=== PATIENT | male | born 1965 | race Caucasian/White ===

== ENCOUNTER 2016-12-27 08:41 | Day surgery (SDC) | payer OTHER ==
[2016-12-25 15:18] VITALS: BMI 25.8
[~2016-12-27 08:41] MED LIST: LACTATED RINGERS 1,000 ML IV SCH
[2016-12-27 09:13] VITALS: RESP 16; TEMP 97.8
[2016-12-27] MEDS ORDERED: LIDOCAINE 1% 20 ML VIAL (10MG/ML) FOR IV START SQ ONE (09:15)
[2016-12-27] MEDS ORDERED: PROPOFOL 10 MG/ML 20 ML VIAL IV ONE (09:37)
--- NOTE | 2016-12-27 09:41 | P.GSHP ---
History of Present Illness H&P Date: 12/27/16 Chief Complaint: Colon cancer screening Patient here today for screening colonoscopy. He has not had one previously. No family history of colon cancer. No bowel related complaints. Past Medical History Past Medical History: Hypertension History of Any Multi-Drug Resistant Organisms: None Reported Past Surgical History: Orthopedic Surgery Additional Past Surgical History / Comment(s): LT KNEE SCOPE Past Anesthesia/Blood Transfusion Reactions: No Reported Reaction Smoking Status: Current every day smoker - Past Family History Mother Family Medical History: No Reported History Medications and Allergies Home Medications Medication Instructions Recorded Confirmed Type Losartan Potassium [Cozaar] 100 mg PO DAILY 12/25/16 12/27/16 History Allergies Allergy/AdvReac Type Severity Reaction Status Date / Time No Known Allergies Allergy Verified 12/27/16 09:13 Surgical - Exam Vital Signs Temp Pulse Resp BP Pulse Ox 97.8 F 83 16 132/84 98 12/27/16 09:12 12/27/16 09:12 12/27/16 09:12 12/27/16 09:12 12/27/16 09:12 Physical exam: General: Well-developed, well-nourished HEENT: Normocephalic, sclerae nonicteric Abdomen: Nontender, nondistended Extremities: No edema Neuro: Alert and oriented Assessment and Plan (1) Colon cancer screening Narrative/Plan: Proceed with colonoscopy at this time Status: Acute
--- NOTE | 2016-12-27 09:54 | P.PCN ---
Date of Procedure: 12/27/16 Preoperative Diagnosis: Postoperative Diagnosis: Procedure(s) Performed: PREOPERATIVE DIAGNOSIS: Colon cancer screening POSTOPERATIVE DIAGNOSIS: Normal exam PROCEDURE: Colonoscopy ANESTHESIA: MAC SURGEON: Nehemiah Ortega M.D. SPECIMENS: None ENDOSCOPIC PROCEDURE: The patient was placed on the endoscopy table in the left decubitus position. The Olympus colonoscope was inserted into the anus and passed under direct visualization to the base of the cecum. The appendiceal orifice was visualized. From that point the scope was slowly withdrawn inspecting all surfaces carefully. There were no neoplastic inflammatory or polypoid lesions throughout the cecum, ascending, transverse, descending, sigmoid and rectum. There was no diverticulosis noted. Digital rectal examination was normal. The patient was taken to the recovery room in stable condition per anesthesia guidelines. RECOMMENDATIONS: Increase fiber. Follow-up colonoscopy 10 years. Implants: Indications for Procedure: Operative Findings: Description of Procedure:
[2016-12-27 10:21] VITALS: BP 136/70; PULSE 72
== END 2016-12-27 10:31 | disposition home or self-care (01) ==
LOC: ORWHC2ENDO 08:41
PROVIDERS: ATTEND Surgery
DX: Z12.11 Encounter for screening for malignant neoplasm of colon (principal); I10 Essential (primary) hypertension; F17.200 Nicotine dependence, unspecified, uncomplicated; Z79.899 Other long term (current) drug therapy
CPT/HCPCS: J2704; G0121

== ENCOUNTER → 2018-08-11 | Outpatient (CLI) | payer OTHER ==
--- NOTE | 2018-08-11 11:45 | XR ---
EXAMINATION TYPE: XR chest 2V DATE OF EXAM: 08/11/2018 COMPARISON: NONE HISTORY: Scleroderma. TECHNIQUE: Frontal and lateral views of the chest are obtained. FINDINGS: There is no focal air space opacity, pleural effusion, or pneumothorax seen. The cardiac silhouette size is upper limits of normal. The osseous structures are intact. IMPRESSION: No suspicious acute or chronic pulmonary process.
== END ==
LOC: RADXRMAIN 11:29
PROVIDERS: ATTEND Family Medicine
DX: L94.0 Localized scleroderma [morphea] (principal)
CPT/HCPCS: 71046

== ENCOUNTER → 2024-02-12 | Outpatient (CLI) | payer OTHER | END | disposition home or self-care (01) | LOC: LABPRL 10:25 | PROVIDERS: ATTEND Family Medicine | DX: Z00.00 Encounter for general adult medical examination without abnormal findings (principal); Z12.5 Encounter for screening for malignant neoplasm of prostate; I10 Essential (primary) hypertension | CPT/HCPCS: 80061; 80053; 85025; 83036; G0103 ==

== ENCOUNTER → 2025-01-24 | Outpatient (CLI) | payer OTHER ==
--- NOTE | 2025-01-26 13:19 | XR ---
EXAMINATION TYPE: XR spine complete AP and Lat DATE OF EXAM: 01/24/2025 COMPARISON: NONE CLINICAL INDICATION: Male, 59 years old with history of M1990 UNSPECIFIED OSTEOARTHRITIS, UNSPECIFIED SITE; TECHNIQUE: AP and lateral views of the cervical, thoracic and lumbar spine. FINDINGS: Cervical spine: Generalized demineralization. There is multilevel mild to moderate degenerative disc disease most marked at C5-6 and C6-C7. Grade 1 retrolisthesis of C3-C4. Straightening of the cervical spine. There is facet arthropathy. Soft tissue calcification on the left likely related to atheroscl erotic change of the carotid artery. Thoracic spine: Generalized osteopenia. There is multilevel mild to moderate hypertrophic and degener ative disc disease. Lumbar spine: Generalized osteopenia.. Facet arthropathy L4-5 and L5-S1 with minimal grade 1 anteroli sthesis L5-S1. Multilevel degenerative disc disease with moderate changes L4-5 and L5-S1. Incidental note made of vascular calcifications. IMPRESSION: 1. Multilevel mild to moderate degenerative disc disease cervical, thoracic and lumbar spine. [facility], , 01/26/2025 1:16 PM
== END | disposition home or self-care (01) ==
LOC: RADXRMAIN 17:00
PROVIDERS: ATTEND Nurse Practitioner Family
DX: M51.369 Other intervertebral disc degeneration, lumbar region without mention of lumbar back pain or lower extremity pain (principal); M50.323 Other cervical disc degeneration at C6-C7 level; M51.34 Other intervertebral disc degeneration, thoracic region; M19.90 Unspecified osteoarthritis, unspecified site
CPT/HCPCS: 72082